=== PATIENT | female | born 1990 | race Two or more races ===

== ENCOUNTER 2025-02-19 23:32 | Emergency (ER) | payer OTHER ==
[~2025-02-19] VITALS: Ht 154.9 cm; Wt 69.9 kg
[~2025-02-19 23:32] MED LIST: DOXYCYCLINE HY100 M1 PO; DOXYCYCLINE HY100 MG PO; TYLENOL W-CODEI1 TAB PO; TYLENOL-CODEINE1 TAB PO
[2025-02-19 23:48] VITALS: BP 118/87; O2SAT 97
[2025-02-20] MEDS ORDERED: VENTOLIN HFA18 GM IH (04:46)
[2025-02-20] MEDS ORDERED: SYMBICORT 16010.2 GM IH (04:46)
[2025-02-20] MEDS ORDERED: ZYNCOF 20-400120 ML PO (04:46)
[2025-02-20] MEDS ORDERED: BUDESONIDE0.5 MG/2 M IH (04:47)
== END 2025-02-20 05:46 | disposition home or self-care (01) ==
LOC: ER 23:33
DX: R05.8 Other specified cough (principal); Z88.0 Allergy status to penicillin; Z91.013 Allergy to seafood; Z88.6 Allergy status to analgesic agent; J45.909 Unspecified asthma, uncomplicated